=== PATIENT | male | born 1930 | race Caucasian/White ===

== ENCOUNTER → 2016-06-19 | Outpatient (CLI) | payer MEDICARE, BC | LOC: HEDF 15:40 | DX: S09.90XA Unspecified injury of head, initial encounter (principal); H92.22 Otorrhagia, left ear; R00.0 Tachycardia, unspecified; W18.30XA Fall on same level, unspecified, initial encounter; Y93.E5 Activity, floor mopping and cleaning; Y92.093 Driveway of other non-institutional residence as the place of occurrence of the external cause | CPT/HCPCS: A0431; A0436 ==